=== PATIENT | male | born 2000 | race African-American/Black ===

== ENCOUNTER 2020-04-19 02:02 | Emergency (ER) | payer MEDICAID, SELFPAY ==
[2020-04-19 02:08] VITALS: BP 132/66; PULSE 46; RESP 16; TEMP 36.7; O2SAT 100; BMI 25.0
[2020-04-19] MEDS: Acetaminophen 325 MG TABLET 975 MG PO (03:04)
[2020-04-19] MEDS: Lidocaine 4 % Patch ADH..PATCH 1 PATCH TRANSDERMA (03:04)
[2020-04-19] MEDS: Ketorolac Tromethamine 15 MG/ML VIAL IM (03:04)
--- NOTE | 2020-04-19 03:10 | PC.NURSE ---
pt medicated per emar for 7/10 lower back pain that has been going on for approx 2 months. pt urine sample sent. pending this to be dKylec, pt in nad
--- NOTE | 2020-04-19 03:14 | ED_ITS ---
HPI - Back Pain/Injury General Chief Complaint: Back Pain/Injury Stated Complaint: Back pain Time Seen by Provider: 04/19/20 02:28 Source: patient Mode of arrival: ambulatory Limitations: no limitations History of Present Illness HPI Narrative: This is a 20-year-old male who presents with 1-2 days of acute worsening of his chronic back pain that he describes being located on the right paraspinal lower back without radiation into the gluteal muscle or down into the lower extremity. In addition, patient denies any fevers, chills, nausea, vomiting, diarrhea, urinary pain/ burning /frequency. Related Data Allergies Allergy/AdvReac Type Severity Reaction Status Date / Time No Known Allergies Allergy Verified 04/19/20 02:07 Review of Systems Review of Systems: Pertinent positives and negatives as stated in HPI 10 point review of systems otherwise negative. [facility] Past Medical History Source: nursing notes reviewed Medical History No known health problems Social History Social History Advance Directives: No Advance Directives Information Provided: No Physical Exam Vital Signs: Vital Signs: Vital Signs Temp Pulse Resp BP Pulse Ox 04/19/20 02:08 98.1 F 46 L 16 132/66 100 Body Mass Index 25.0 VITAL SIGNS: Reviewed. GENERAL: Well developed, well nourished, in no acute distress. HEAD: Normocephalic/atraumatic, EYES: PERRLA, EOMI intact without pain, no nystagmus/pallor/icterus noted EARS: Ext canals without abnormality, TMs non-bulging and non-erythematous NOSE: Nares patent bilateral OROPHARYNX: no oral lesions noted, posterior pharynx clear and non-erythematous without noted tonsillar enlargement/erythema/exudates NECK: Supple, no adenopathy LUNGS: Normal breath sounds. No adventitious sounds or accessory muscle use. SpO2<100> CARDIOVASCULAR: Regular rate and rhythm without noted murmurs, no JVD or lower extremity edema. ABDOMEN: Soft, non-tender, non-distended with bowel sounds. No rigidity. No guarding. No palpable masses or hernias noted MUSCULOSKELETAL: No tenderness, deformities, or effusions noted on gross inspection. BACK: Noted spasm to the right paraspinal approximately L4-L5 and no noted midline vertebral tenderness. Otherwise, full range of motion noted and straight leg negative. EXTREMITIES: No cyanosis, clubbing or edema. SKIN: Inspection of the skin reveals no rashes, ulcerations, jaundice, pallor, or petechiae. NEUROLOGIC: Alert and oriented x 4. Strength and sensation to light touch were grossly intact x 4. Course Course Course Narrative: This is a 20-year-old male with history and clinical presentation most consistent with likely acute on chronic exacerbation of lower back pain with associated muscle spasm. Doubt renal colic, UTI etiologies. Patient was provided with combination analgesics and a urinalysis was checked. On re-evaluation patient has had complete resolution of his back pain and urinalysis is negative for UTI. Nursing staff informed me that patient left without his discharge paperwork. MDM - Back Pain/Injury Lab Data Labs: Lab Results 04/19/20 Range/Units 03:03 Urine Color YELLOW Urine Appearance CLEAR Urine pH 7.0 (5.0-8.0) Ur Specific [place] 1.025 (1.005-1.025) Urine Protein NEG (NEG-TRACE) MG/DL Urine Glucose (UA) NEG (NEG) MG/DL Urine Ketones 5 (NEG) MG/DL Urine Blood NEG (NEG) Urine Nitrite NEG (NEG) Ur Leukocyte Esterase NEG (NEG) Discharge Plan Discharge Clinical Impression: Back pain Qualifiers: Back pain location: low back pain Chronicity: acute Back pain laterality: right Sciatica presence: without sciatica Qualified Code(s): M54.5 - Low back pain Patient Disposition: Home, Self-Care Instructions: Acute Low Back Pain (ED) Additional Instructions: 1. Tylenol 1000 mg, orally, every 6 hours as needed for pain control. Do not exceed 4000 mg within 24 hours. 2. ibuprofen 400 mg, orally with milk or food, every 6 hours as needed for pain control. 3. lidocaine patch, this is available in every drug store, apply to area of maximal tenderness as directed on the outside packaging. The patient and/or family acknowledge understanding of results (as applicable), diagnosis, treatment plan, need for follow up, and symptoms that should prompt a return to the emergency room. Referrals: Physician,Unknown [Primary Care Provider] - 2 days ( back pain)
[2020-04-19 03:17] LABS: Glucose Urine UA NEG (NEG); Leukocyte Esterase Urine NEG (NEG); Nitrite Urine NEG (NEG); Specific Gravity - Urine 1.025 (1.005-1.025); Urine Blood NEG (NEG); Urine Ketones 5 MG/DL (NEG); Urine Protein NEG (NEG-TRACE)
[2020-04-19 03:18] LABS: Appearance Urine CLEAR; Color Urine YELLOW
--- NOTE | 2020-04-19 04:16 | PC.NURSE ---
pt did not want to wait for d.c instructions. urine negative.
== END 2020-04-19 04:30 | disposition home or self-care (01) ==
PROVIDERS: Emergency Provider Student in an Organized Health Care Education/Training Program
DX: M54.42 Lumbago with sciatica, left side (principal); M54.41 Lumbago with sciatica, right side
CPT/HCPCS: 81003; 96372; 99283; 99284; J1885

== ENCOUNTER 2020-08-09 12:23 | Outpatient (REF) | payer MEDICAID, SELFPAY ==
--- NOTE | ~2020-08-09 | XR_ITS ---
EXAMINATION: XR LUMBOSACRAL SPINE CLINICAL INFORMATION: Low back pain. COMPARISON: None TECHNIQUE: Three views of the lumbosacral spine. FINDINGS: Mild retrolisthesis of L5 on S1. Vertebral body heights are maintained. No evidence of acute fracture. Disc spaces are maintained. SI joints are intact. No abnormal soft tissue calcification. XR/XR lumbar spine 2-3V IMPRESSION: Mild retrolisthesis of L5 on S1. No acute osseous abnormality.
== END 2020-08-09 12:24 | disposition home or self-care (01) ==
LOC: HO.XRAY 12:23
PROVIDERS: PCP Nurse Practitioner Primary Care; Visit Provider Nurse Practitioner Primary Care
DX: M54.5 Low back pain (principal)
CPT/HCPCS: 72100

== ENCOUNTER 2020-08-26 09:00 | Outpatient (RCR) | payer MEDICAID, SELFPAY | END 2020-09-07 11:12 | disposition home or self-care (01) | LOC: HO.PT 09:00 | PROVIDERS: PCP Nurse Practitioner Primary Care; Visit Provider Nurse Practitioner Primary Care | DX: M54.41 Lumbago with sciatica, right side (principal); M54.42 Lumbago with sciatica, left side | CPT/HCPCS: 97110; 97161; 97530 ==

== ENCOUNTER 2020-11-02 01:04 | Emergency (ER) | payer MEDICAID, SELFPAY ==
--- NOTE | ~2020-11-02 | XR_ITS ---
EXAMINATION: XR FOOT, RIGHT CLINICAL INFORMATION: Toe/foot injury COMPARISON: 08/22/2016 TECHNIQUE: AP, lateral, and oblique views of the right foot. FINDINGS: Osseous alignment is anatomic. No acute fracture is seen. No significant focal soft tissue abnormality identified. XR/XR foot RT 2V IMPRESSION: No acute findings identified.
[2020-11-02 01:26] VITALS: BP 137/58; PULSE 61; RESP 18; TEMP 37; O2SAT 100; BMI 23.1
--- NOTE | 2020-11-02 02:25 | ED_ITS ---
HPI - General Adult General Chief complaint: General Medical Stated complaint: foot pain Time Seen by Provider: 11/02/20 02:18 Source: patient Mode of arrival: ambulatory Limitations: no limitations History of Present Illness HPI narrative: 20-year-old male with no significant past medical history presents with right lateral foot pain that started on Saturday after a basketball game. Patient stated that he landed wrong on the pain has progressively gotten worse. Every time he steps he feels a sharp shooting pain going through his foot. He does not report any bruising or swelling, denies loss of sensation. Or any other injuries. Onset (ago): day(s) Location: right and lower extremity Radiation: non-radiation Severity: moderate Severity scale (1-10): 6 Quality: stabbing, aching and sharp Pain Consistency: intermittent Relieving factors: immobilization and rest Exacerbating factors: movement Associated symptoms: denies other symptoms Treatments prior to arrival: none Related Data Allergies Allergy/AdvReac Type Severity Reaction Status Date / Time No Known Allergies Allergy Verified 11/02/20 01:26 Review of Systems Review of Systems: Constitutional: No Fever, No Chills ENT/Mouth: No Ear Pain, No Hoarseness, No sore throat Eyes: No Eye Pain, No Swelling, No Redness, No Foreign Body Cardiovascular: No Chest Pain, No SOB Respiratory: No Cough, No Dyspnea Gastrointestinal: No Nausea, No Vomiting, No Diarrhea, No abdominal Pain Genitourinary: No Dysuria, No Hematuria Musculoskeletal: positive right foot pain, No Myalgias, No Joint Swelling Skin: No Skin lacerations, No rash Neuro: No Weakness, No Numbness, No Paresthesias, No Loss of Consciousness, No Dizziness, No Headache Psych: No Anxiety/Panic, No Depression Heme/Lymph: no easy bruising, no Lymphadenopathy Endocrine: No Polyuria, No Polydipsia Yes all other systems are reviewed and are negative [facility] Past Medical History Attestation statement: The following information was validated with the patient. Source: old records reviewed Medical History No known health problems Social History Social History Advance Directives: No Advance Directives Information Provided: No Physical Exam Vital Signs: Vital Signs: Last Vital Signs Temp 98.6 F 11/02/20 01:26 Pulse 61 11/02/20 01:26 Resp 18 11/02/20 01:26 BP 137/58 L 11/02/20 01:26 Pulse Ox 100 11/02/20 01:26 Body Mass Index 23.1 Appearance: Alert. Oriented X3. No acute distress. Eyes: Pupils equal, round and reactive to light. ENT: Pharynx normal. Neck: Normal inspection. Neck supple. CVS: Normal heart rate and rhythm. Pulses normal. Respiratory: No respiratory distress. Breath sounds normal. Abdomen: Soft and nontender. Skin: Skin warm and dry. Normal skin color. Normal skin turgor. Extremities: Full range of motion to bilateral lower extremities, tenderness noted to the hallux on the right side, no bruising or swelling noted. Neuro: No motor deficit. No sensory deficit. Course Course Course Narrative: 20-year-old male presents with right foot pain. States that he landed wrong while playing basketball on Saturday. Plan of care is for x- rays. X-rays are negative for acute findings requiring fracture. Plan of care to discharge home. Patient verbalized understanding of and agrees to plan of care discharge home. Medical Decision Making Differential Diagnosis Differential Diagnosis: Fracture, sprain Medical Records Medical records reviewed: Yes I reviewed the patient's medical records. Imaging Data Right foot x-ray: Attestation: I personally reviewed and interpreted this imaging study as follows: Radiologist's impression: EXAMINATION: XR FOOT, RIGHT CLINICAL INFORMATION: Toe/foot injury COMPARISON: 08/22/2016 TECHNIQUE: AP, lateral, and oblique views of the right foot. FINDINGS: Osseous alignment is anatomic. No acute fracture is seen. No significant focal soft tissue abnormality identified. XR/XR foot RT 2V IMPRESSION: No acute findings identified. Discharge Plan Discharge Clinical Impression: Acute foot pain Qualifiers: Laterality: right Qualified Code(s): M79.671 - Pain in right foot Patient Disposition: Home, Self-Care Instructions: Metatarsalgia (DC), R.I.C.E. Treatment (ED) Additional Instructions: You were evaluated for right foot pain after an injury sustained from a basketball game. Your x-rays are negative for acute findings. You do not have any fractures or indication of sprain. Please take Motrin and Tylenol as needed for pain management. Please follow rest, ice, compression and elevation treatment to help decrease pain. Thank you for choosing this emergency department for evaluation. Please follow-up with primary care physician as needed. Return to the emergency department for any new, concerning, or worsening symptoms.
[2020-11-02] MEDS: Ibuprofen 600 MG TABLET PO (03:31)
== END 2020-11-02 03:32 | disposition home or self-care (01) ==
PROVIDERS: Emergency Provider Emergency Medicine
DX: M79.671 Pain in right foot (principal)
CPT/HCPCS: 73620; 99283

== ENCOUNTER 2020-11-19 01:29 | Emergency (ER) | payer MEDICAID, SELFPAY ==
[2020-11-19 03:56] VITALS: BP 125/74; PULSE 53; RESP 16; TEMP 36.4; O2SAT 99; BMI 23.7
--- NOTE | 2020-11-19 03:57 | ED.GENADULT ---
HPI - General Adult General Chief complaint: General Medical Stated complaint: sore throat/headache Time Seen by Provider: 11/19/20 03:55 Source: patient Mode of arrival: ambulatory History of Present Illness HPI narrative: 20-year-old male presents with sore throat, fatigue, chills, but denies fever, nausea, vomiting, body aches, recent travel, exposure to COVID-19. Related Data Allergies Allergy/AdvReac Type Severity Reaction Status Date / Time No Known Allergies Allergy Verified 11/19/20 03:56 Review of Systems Review of Systems: Pertinent positives and negatives as stated in HPI 10 point review of systems is otherwise negative. PMFSH Past Medical History Source: nursing notes reviewed Medical History No known health problems Social History Social History Advance Directives: No Advance Directives Information Provided: No Physical Exam Vital Signs: Vital Signs: Last Vital Signs Temp 97.6 F 11/19/20 03:56 Pulse 53 11/19/20 03:56 Resp 16 11/19/20 03:56 BP 125/74 11/19/20 03:56 Pulse Ox 99 11/19/20 03:56 Body Mass Index 23.7 VITAL SIGNS: Reviewed. GENERAL: Well developed, well nourished, in no acute distress. HEAD: Normocephalic/atraumatic, EYES: PERRLA, EOMI EARS: Ext canals without abnormality, TMs non-bulging and non-erythematous NOSE: Nares patent bilateral OROPHARYNX: no oral lesions noted, posterior pharynx erythematous with mildly enlarged tonsils but no exudates NECK: Supple, no adenopathy LUNGS: Normal breath sounds. No adventitious sounds or accessory muscle use. SpO2<99> CARDIOVASCULAR: Regular rate and rhythm without noted murmurs ABDOMEN: Soft, non-tender, non-distended with bowel sounds. NEUROLOGIC: Alert and oriented x 4. Strength and sensation to light touch were grossly intact x 4. Course Course Course Narrative: 20-year-old male with history and clinical presentation suggestive of viral syndrome and review of all investigations negative for any acute findings to suggest strep, COVID, mono. All results were discussed with him at bedside and he was discharged in stable condition. Medical Decision Making Lab Data Labs: Lab Results 11/19/20 11/19/20 11/19/20 Range/Units 04:13 04:13 04:13 COVID-19 ([place]) Negative (Negative) COVID-19 Clin Com See Note Monoscreen Negative (Negative) S. pyogenes GrpA ALBARO Negative (Negative) Discharge Plan Discharge Clinical Impression: Pharyngitis Patient Disposition: Home, Self-Care Instructions: Pharyngitis (ED) Additional Instructions: 1. Increase fluid hydration especially with water. Recommend using [id number] Tylenol/ibuprofen as needed for sore throat. 2. Recommend using saline gargles (this is a combination of warm tap water combine with table salt) and you gargle for 5 minutes at least twice a day. 3. Follow-up with your primary care provider in the next 2-3 days for re-evaluation. Return to the ER for any acute worsening of your symptoms. Referrals: [facility] [Primary Care Provider] - 2 days
[2020-11-19 04:33] LABS: Strep A Nucleic Acid Negative (Negative)
[2020-11-19 04:36] LABS: COVID-19 Test Negative (Negative); IDNOW Serial# 9DD0AD1C
[2020-11-19 04:47] LABS: Monotest Negative (Negative)
[2020-11-19] MEDS: Ibuprofen 400 MG TABLET PO (04:58)
[2020-11-19] MEDS: Acetaminophen 325 MG TABLET 975 MG PO (04:58)
== END 2020-11-19 05:57 | disposition home or self-care (01) ==
PROVIDERS: Emergency Provider Student in an Organized Health Care Education/Training Program
DX: J02.9 Acute pharyngitis, unspecified (principal); R51.9 Headache, unspecified; Z20.822 Contact with and (suspected) exposure to COVID-19
CPT/HCPCS: 36415; 86308; 87635; 87651; 99283

== ENCOUNTER 2020-11-29 07:48 | Emergency (ER) | payer MEDICAID, SELFPAY ==
--- NOTE | ~2020-11-29 | XR_ITS ---
EXAMINATION: XR WRIST, RIGHT CLINICAL INFORMATION: . COMPARISON: None TECHNIQUE: PA, lateral, and oblique views of the right wrist. FINDINGS: The bones and soft tissues are normal. No fracture. Alignment is anatomic with normal joint spaces. No erosions or abnormal soft tissue calcifications. XR/XR wrist RT min 3V IMPRESSION: Unremarkable right wrist.
[2020-11-29 07:50] VITALS: BP 144/73; PULSE 43; RESP 12; TEMP 36.6; O2SAT 100; BMI 23.1
--- NOTE | 2020-11-29 08:08 | ED_ITS ---
HPI - Extremity Problem General Chief complaint: Extremity Injury, Upper Stated complaint: Wrist pain Time Seen by Provider: 11/29/20 08:08 Source: patient Mode of arrival: ambulatory Limitations: no limitations History of Present Illness HPI Narrative: wrist pain. Landed on outstretched arm while playing basketball. the injury happened 2 nights ago. no other injuries. MD Complaint: extremity pain and extremity swelling Onset (ago): day(s) (2) Pain Consistency: constant Location: right and upper extremity Quality: aching Radiation: distal Relieving factors: nothing Exacerbating factors: range of motion Related Data Previous Rx's Medication Instructions Recorded naproxen [Naprosyn] 500 mg PO BID #20 tab 11/29/20 Allergies Allergy/AdvReac Type Severity Reaction Status Date / Time No Known Allergies Allergy Verified 11/19/20 03:56 Review of Systems Constitutional: Constitutional: Reports no additional constitutional complaints Eyes: Eyes: Reports no additional eye complaints ENT: Denies dizziness Cardiovascular: Cardiovascular: Reports no additional cardiovascular complaints Respiratory: Respiratory: Reports as per HPI Gastrointestinal: Gastrointestinal: Reports no additional gastrointestinal complaints Musculoskeletal: Musculoskeletal: Reports no additional musculoskeletal complaints Integumentary/Breasts: Skin/Breast: Denies rash Neurologic: Reports system reviewed and no additional complaints, except as documented, Denies dizziness and Denies Sensory deficit (Neuro) Psychiatric: Psychiatric: Denies anxiety PMF Past Medical History Medical History No known health problems Social History Social History Advance Directives: No Advance Directives Information Provided: No Physical Exam Vital Signs: Vital Signs: Last Vital Signs Temp 98 F 11/29/20 07:50 Pulse 43 L 11/29/20 07:50 Resp 12 11/29/20 07:50 BP 144/73 H 11/29/20 07:50 Pulse Ox 100 11/29/20 07:50 Body Mass Index 23.1 Const: General: healthy appearing Nutritional Appearance: average body habitus Orientation/consciousness: oriented to person and patient oriented x3 Limitations: no limitations HENMT: Head: Yes normal to inspection Ears: external ears normal General nose exam: Normal external nose present Mouth: Normal oral and palatal mucosa present and oropharynx normal Throat: Yes posterior oropharynx normal Eyes: General: appearance normal, both eyes and all related structures Neck: Other: supple Neck: Yes normal visual inspection Chest: Chest palpation & inspection: normal inspection of the chest Resp: Auscultation: clear to auscultation bilaterally Cardio: Jugular venous distension: no JVD Rate: regular rate Rhythm: regular rhythm Heart sounds: S1 normal heart sound present and S2 normal heart sound present GI: Inspection: Yes normal to inspection Palpation (GI): Soft to palpation, nontender and No hepatosplenomegaly present Auscultation: normal bowel sounds : General: Yes no CVA tenderness Back/Spine/Pelvis: Back: no CVA tenderness Skin: General skin exam: no rashes or lesions noted Neuro: General: oriented to person and patient oriented x3 Cranial nerves: Yes CN's II-XII intact bilaterally Motor exam (neuro): 5/5 motor strength present throughout Sensory Exam: No Sensory deficit (Neuro) Extrem: Other: right wrist with swelling and tenderness over carpal bones, no tenderness to snuff box area Psych: Appearance: grossly normal Course Course Course Narrative: no fracture, patient with wrist sprain. will dc on NSAIDs Discharge Plan Discharge Clinical Impression: Sprain and strain of wrist Patient Disposition: Home, Self-Care Instructions: Wrist Sprain (ED) Prescriptions: New naproxen [Naprosyn] 500 mg tablet 500 mg PO BID Qty: 20 RF: 0 Referrals: [facility] [Primary Care Provider] - 1 week
[2020-11-29] MEDS: Ibuprofen 800 MG TABLET PO (08:45)
== END 2020-11-29 09:10 | disposition home or self-care (01) ==
PROVIDERS: Emergency Provider Emergency Medicine
DX: S63.501A Unspecified sprain of right wrist, initial encounter (principal); S66.911A Strain of unspecified muscle, fascia and tendon at wrist and hand level, right hand, initial encounter; W01.0XXA Fall on same level from slipping, tripping and stumbling without subsequent striking against object, initial encounter; Y93.67 Activity, basketball; Y92.310 Basketball court as the place of occurrence of the external cause; Y99.9 Unspecified external cause status
CPT/HCPCS: 73110; 99283

== ENCOUNTER 2022-04-01 09:20 | Emergency (ER) | payer MEDICAID, SELFPAY ==
--- NOTE | ~2022-04-01 | XR_ITS ---
EXAMINATION: XR ANKLE, LEFT CLINICAL INFORMATION: Injury pain COMPARISON: X-ray left foot JulyJuly 2014 TECHNIQUE: AP, lateral, and mortise views of the left ankle. FINDINGS: There is soft tissue prominence anteriorly and laterally likely reflecting edema and soft tissue swelling. No definite joint effusion. No fracture. Bone and joints unremarkable. XR/XR ankle LT 2V IMPRESSION: No fracture. Probable soft tissue swelling anteriorly and laterally about the ankle.
[2022-04-01 09:24] VITALS: BP 134/64; PULSE 53; TEMP 36.9; O2SAT 98
--- NOTE | 2022-04-01 09:37 | ED_ITS ---
HPI - Extremity Injury (Lower) General Chief Complaint: General Medical Stated Complaint: L ankle pain, possible fracture Time Seen by Provider: 04/01/22 09:28 Source: patient Mode of arrival: ambulatory Limitations: no limitations History of Present Illness HPI Narrative: 22-year-old male here with left ankle pain after inversion injury which occurred yesterday. Patient now reports pain with weight-bearing. No numbness, tingling or weakness Related Data Previous Rx's Medication Instructions Recorded naproxen 500 mg tablet (Naprosyn) 500 mg PO BID #20 tabs 11/29/20 Allergies Allergy/AdvReac Type Severity Reaction Status Date / Time No Known Allergies Allergy Verified 11/19/20 03:56 Review of Systems Review of Systems: Yes all other systems are reviewed and are negative Constitutional: Constitutional: Reports no additional constitutional complaints, Denies body ache(s), Denies chills, Denies fever(s), Denies headache(s) and Denies weakness Eyes: Eyes: Reports no additional eye complaints and Denies change in vision ENT: Reports system reviewed and no additional complaints, except as documented, Denies dizziness, Denies headache(s), Denies nasal congestion, Denies nasal discharge and Denies neck pain Cardiovascular: Cardiovascular: Reports no additional cardiovascular complaints, Denies chest pain, Denies leg edema and Denies dyspnea Respiratory: Respiratory: Reports no additional respiratory complaints, Denies cough and Denies dyspnea Gastrointestinal: Gastrointestinal: Reports no additional gastrointestinal com plaints, Denies abdominal pain, Denies diarrhea, Denies nausea and Denies vomiting Genitourinary: Genitourinary: Denies urinary incontinence Musculoskeletal: Musculoskeletal: Reports no additional musculoskeletal complaints, Denies back pain, Reports arthralgias, Reports joint swelling, Antwon es neck pain, Denies numbness and Denies tingling Integumentary/Breasts: Skin/Breast: Reports system reviewed and no additional complaints, except as docu and Denies rash Neurologic: Reports system reviewed and no additional complaints, except as documented, Denies Abnormal speech present, Denies dizziness, Denies headache(s), Denies numbness, Denies tingling and Denies weakness PMFSH Past Medical History Attestation statement: The following information was validated with the patient. Source: old records reviewed and nursing notes reviewed Medical History No known health problems Social History Social History Advance Directives: No Advance Directives Information Provided: No Physical Exam Vital Signs: Vital Signs: Last Vital Signs Temp 98.5 F 04/01/22 09:24 Pulse 53 04/01/22 09:24 BP 134/64 04/01/22 09:24 Pulse Ox 98 04/01/22 09:24 O2 Del Method 04/01/22 09:24 BMI result Body Mass Index 25.0 Const: General: cooperative, healthy appearing, comfortable and no acute distress Orientation/consciousness: patient oriented x3 Limitations: no limitations HEENT: Head: Yes normal to inspection Ears: hearing grossly normal bilaterally General nose exam: Normal external nose present Face and sinus: Yes normal facial exam Mouth: Normal oral and palatal mucosa present Throat: Yes posterior oropharynx normal Eyes: General: appearance normal, both eyes and all related structures Pupils: Equal, round and reactive pupils present Neck: Neck: Yes normal visual inspection Chest: Chest palpation & inspection: normal inspection of the chest Resp: Effort & Inspection: normal respiratory effort Auscultation: clear to auscultation bilaterally Cardio: Rate: regular rate Rhythm: regular rhythm Peripheral pulses: Peripheral pulses 2+ throughout GI: Inspection: Yes normal to inspection Palpation (GI): Soft to palpation and nontender Auscultation: normal bowel sounds Back/Spine/Pelvis: Thoracic/Lumbar Spine: thoracic and lumbar spine normal to inspection Skin: General skin exam: no rashes or lesions noted Neuro: General: patient oriented x3, no focal motor deficits and normal sensation to monofilament Cranial nerves: Yes Equal, round and reactive pupils present Cognition (Neuro): normal cognition Speech: No Abnormal speech present Gait exam (Neuro): Normal gait present Motor exam (neuro): 5/5 motor strength present throughout Extrem: Other: +swelling/ecchymosis to the left lateral ankle. 2+DP/PT pulses. Sensation normal. FROM of foot and ankle General: Yes normal to inspection and Yes no calf tenderness Course Course Course Narrative: X-ray shows no acute bony abnormality. Likely sprain. Patient placed in air cast and crutches for home. Reviewed rice. Reviewed worrisome signs and symptoms when to return to the emergency room. Comfortable plan for discharge home. MDM - Extremity Injury (Lower) MDM Narrative Medical decision making narrative: 22-year-old male here with left ankle pain after inversion injury. Will check x-rays, provide analgesia Differential Diagnosis Differential diagnosis: Likely ankle sprain and strain and ankle fracture Medical Records Attestation: I reviewed the patient's medical records. Lab Data Attestation: I reviewed the patient's lab results. Imaging Data ankle x-ray: Attestation: I personally reviewed and interpreted this imaging study as follows: Radiologist's impression: [address] [address] XRay Report Signed Patient: Usama Saenz MR#: [id number] : 2000 Acct:[id number] Age/Sex: 22 / M ADM Date: 04/01/22 Loc: HO.ED Attending Dr: Ordering Physician: Martha Lott NP Date of Service: 04/01/22 Procedure(s): XR ankle LT 2V Accession Number(s): [id number] cc: Martha Lott NP~ EXAMINATION: XR ANKLE, LEFT CLINICAL INFORMATION: Injury pain? COMPARISON: X-ray left foot JulyJuly 2014 TECHNIQUE: AP, lateral, and mortise views of the left ankle. FINDINGS: There is soft tissue prominence anteriorly and laterally likely reflecting edema and soft tissue swelling. No definite joint effusion. No fracture. Bone and joints unremarkable.? XR/XR ankle LT 2V IMPRESSION: No fracture. ? Probable soft tissue swelling anteriorly and laterally about the ankle. Procedures Procedure Narrative Procedure Narrative: aircast, crutches Discharge Plan Discharge Clinical Impression: Ankle sprain Patient Disposition: Home, Self-Care Instructions: Ankle Sprain (ED) Additional Instructions: Rest, ice, elevation Use the aircast and crutches for ambulation with non weight bearing Take motrin or tylenol for pain as needed Prescriptions: No Action naproxen [Naprosyn] 500 mg tablet 500 mg PO BID Qty: 20 0RF Referrals: [facility] [Physician[facility] - Stand Alone Forms: Work/School Release Interventions: ED Discharge Assessment Last Done: 04/01/22 11:12 Discharge Date/Time: 04/01/22 11:13
[2022-04-01 09:51] VITALS: BMI 25.0
[2022-04-01] MEDS: Ibuprofen 600 MG TABLET PO (09:55)
== END 2022-04-01 11:13 | disposition home or self-care (01) ==
PROVIDERS: Emergency Provider Emergency Medicine; PCP Nurse Practitioner Primary Care
DX: M25.572 Pain in left ankle and joints of left foot (principal)
CPT/HCPCS: 73600; 99283

== ENCOUNTER 2022-04-08 10:13 | Emergency (ER) | payer MEDICAID, SELFPAY ==
--- NOTE | ~2022-04-08 | XR_ITS ---
. EXAMINATION: XR wrist RT w scaphoid CLINICAL INFORMATION: s/p fall x 1 year ago c persistent pain COMPARISON: None. TECHNIQUE: AP, lateral, oblique, and scaphoid views of the right wrist FINDINGS: No fracture. Normal alignment. Normal mineralization. No radiopaque foreign body. No soft tissue abnormality seen. XR/XR wrist RT w scaphoid IMPRESSION: No acute osseous abnormality.
--- NOTE | ~2022-04-08 | XR_ITS ---
EXAMINATION: CR X-RAY FOOT AND ANKLE LEFT CLINICAL INFORMATION: Left foot and ankle pain and swelling. COMPARISON: None TECHNIQUE: 3 views each of the left foot and ankle were obtained. FINDINGS: Mild soft tissue swelling is seen laterally in the ankle without acute underlying osseous abnormality. The tarsal bones are normally aligned. The metatarsals and phalanges are intact. XR/XR ankle LT min 3V IMPRESSION: Mild soft tissue swelling laterally in the left ankle without acute underlying osseous abnormality.
--- NOTE | ~2022-04-08 | XR_ITS ---
EXAMINATION: CR X-RAY FOOT AND ANKLE LEFT CLINICAL INFORMATION: Left foot and ankle pain and swelling. COMPARISON: None TECHNIQUE: 3 views each of the left foot and ankle were obtained. FINDINGS: Mild soft tissue swelling is seen laterally in the ankle without acute underlying osseous abnormality. The tarsal bones are normally aligned. The metatarsals and phalanges are intact. XR/XR foot LT min 3V IMPRESSION: Mild soft tissue swelling laterally in the left ankle without acute underlying osseous abnormality.
[2022-04-08 10:34] VITALS: BP 146/55; PULSE 50; RESP 17; TEMP 36.6; O2SAT 98; BMI 23.7
--- NOTE | 2022-04-08 12:58 | ED.LOWEXIN ---
HPI - Extremity Injury (Lower) General Chief Complaint: Extremity Injury, Lower Stated Complaint: L ankle inj Time Seen by Provider: 04/08/22 11:54 Source: patient and family Mode of arrival: ambulatory Limitations: no limitations History of Present Illness HPI Narrative: 22-year-old male presenting to the ER with complaints of persistent left ankle/foot pain/swelling after he had an inversion injury on 03/31/2022. He reports that the pain is worse with weight-bearing. He was seen here on 04/01/2022 and had a negative left ankle x-ray. Although he reports he was never given the Aircast or the crutches. He reports his pain persists and he would like re-evaluation and imaging. He also reports right wrist pain for approximately 1 year ago after he had a fall at that time. He reports he is having pain with his right wrist almost daily especially with certain movements. Otherwise he denies any fevers, paresthesias, weakness, rashes, new falls or trauma or any other symptoms complaints or concerns at this time. MD complaint: ankle injury and other Onset (ago): day(s) (8) Injury: Left: ankle and foot Type of Injury: inversion Severity: mild Relieving factors: nothing Exacerbating factors: weight bearing, movement and palpation Context: other (See above) Associated symptoms: swelling and able to partially bear weight Other symptoms: none Related Data Previous Rx's Medication Instructions Recorded naproxen 500 mg tablet (Naprosyn) 500 mg PO BID #20 tabs 11/29/20 Allergies Allergy/AdvReac Type Severity Reaction Status Date / Time No Known Allergies Allergy Verified 11/19/20 03:56 Review of Systems Review of Systems: Constitutional : No Weight loss, No Fever, No Chills, No Night Sweats, No Fatigue, No Malaise ENT/Mouth : No Hearing loss, No Ear Pain, No Nasal Congestion, No Sinus Pain, No Hoarseness, No sore throat, No Rhinorrhea, No Swallowing Difficulty Eyes: No Eye Pain, No Swelling, No Redness, No Foreign Body, No Discharge, No Vision Changes Cardiovascular : No Chest Pain, No SOB, No Dyspnea on Exertion, No Orthopnea, No Edema, No Palpitations Respiratory : No Cough, No Sputum, No Wheezing, No Smoke Exposure, No Dyspnea Gastrointestinal : No Nausea, No Vomiting, No Diarrhea, No Constipation, No abdominal Pain, No Hematochezia, No Melena Genitourinary : no irregular bleeding, No Dysuria, No Urinary Frequency, No Hematuria, No Urinary Incontinence, No Urgency, No Flank Pain, No Urinary Flow Changes, No Hesitancy Musculoskeletal : + left ankle/foot pain/swelling and Right wrist joint pain, No Myalgias Skin : No Skin Lesions, No rash Neuro : No Weakness, No Numbness, No Paresthesias, No Loss of Consciousness, No Dizziness, No Headache Psych : No Anxiety/Panic, No Depression, No SI/HI/AH/VH, No Social Issues, Heme/Lymph: No Bruising, No Bleeding,No Lymphadenopathy Endocrine : No Polyuria, No Polydipsia, No Temperature Intolerance Yes all other systems are reviewed and are negative [facility] Past Medical History Attestation statement: The following information was validated with the patient. Source: old records reviewed and nursing notes reviewed Medical History No known health problems Social History Social History Advance Directives: No Advance Directives Information Provided: Yes Physical Exam Vital Signs: Vital Signs: Last Vital Signs Temp 98 F 04/08/22 10:34 Pulse 50 04/08/22 10:34 Resp 17 04/08/22 10:34 BP 146/55 H 04/08/22 10:34 Pulse Ox 98 04/08/22 10:34 O2 Del Method 04/08/22 10:34 BMI result Body Mass Index 23.7 vital signs have been reviewed as normal and appeared to be correct. Blood pressure 146/55 Heart rate normal. Respiration rate normal. Temperature normal. Oxygen saturation normal. Appearance: Alert. Oriented X3. No acute distress. Head: Normal external exam. Normocephalic. Atraumatic. Eyes: PERRLA. EOMI. Conjunctiva and sclera normal. Eyelids normal. ENT: Pharynx normal. Uvula midline. Moist mucous membranes. Neck: Normal inspection. Neck supple. FROM. CVS: Normal heart rate and rhythm. Respiratory: No respiratory distress. Painless inspiration. Skin: Skin warm and dry. Normal skin color. Normal skin turgor. No rashes/lesions/lacerations noted. Extremities: Patient moderate tenderness palpation and soft tissue swelling to left ankle at the lateral/medial and proximal aspect of the foot. He has full range of motion of the left ankle/foot joint. No obvious ligamentous or tendon injury noted. Achilles tendon is intact. Negative Vides test. No lower extremity edema noted. Patient also noted to have tenderness palpation to the right wrist. No obvious ligamentous or tendon injury noted to the right wrist. No upper lower extremity edema. Patient has full range of motion of the right wrist and hand and finger joint. Otherwise all other extremities exhibit normal range of motion nontender. Neuro: Oriented X 3. No motor deficit. No sensory deficit. Reflexes normal. Normal steady gait. No focal neuro deficits noted. Vascular: + radial pulses/+ 2 distal pedal pulses/+2 dorsalis pedis b/l. Normal cap refill. No cyanosis noted to upper extremity nails and lower extremity toes nails. Course Course Course Narrative: 12:10pm - 22-year-old male presenting to the ER with complaints of persistent left ankle/foot pain/swelling after he had an inversion injury on 03/31/2022. He reports that the pain is worse with weight-bearing. He was seen here on 04/01/2022 and had a negative left ankle x-ray. Although he reports he was never given the Aircast or the crutches. He reports his pain persists and he would like re-evaluation and imaging. He also reports right wrist pain for approximately 1 year ago after he had a fall at that time. He reports he is having pain with his right wrist almost daily especially with certain movements. Plan: Will repeat the patient's left ankle x-ray, will also x-ray the patient's left foot, x-ray of right wrist and re-evaluate. Reevaluation(s) Reevaluation #1: - left ankle/foot x-ray reveals soft tissue swelling at the lateral malleolus otherwise no other acute processes noted. Right wrist x-ray negative for any acute processes. Will place in an Aircast and crutches and treat symptomatic clean instructed follow-up with PCP and orthopedic as needed in the next few weeks and to return if any new or worsening symptoms. Patient understands agrees with this plan. Time: 13:36 MDM - Extremity Injury (Lower) Medical Records Attestation: I reviewed the patient's medical records. Imaging Data Left ankle/foot x-ray: Attestation: I personally reviewed and interpreted this imaging study as follows: Radiologist's impression: FINDINGS: Mild soft tissue swelling is seen laterally in the ankle without acute underlying osseous abnormality. The tarsal bones are normally aligned. The metatarsals and phalanges are intact.? XR/XR foot LT min 3V IMPRESSION: Mild soft tissue swelling laterally in the left ankle without acute underlying osseous abnormality.? Right wrist x-ray: Attestation: I personally reviewed and interpreted this imaging study as follows: Radiologist's impression: FINDINGS: No fracture. Normal alignment. Normal mineralization.? No radiopaque foreign body. No soft tissue abnormality seen. XR/XR wrist RT w scaphoid IMPRESSION: No acute osseous abnormality. Discharge Plan Discharge Clinical Impression: Ankle sprain and strain, Sprain and strain of right wrist Patient Disposition: Home, Self-Care Instructions: Ankle Sprain (ED) Prescriptions: No Action naproxen [Naprosyn] 500 mg tablet 500 mg PO BID Qty: 20 0RF Referrals: Ria Berry NP [Primary Care Provider] - 2 days (For further evaluation treatment of his right wrist and left ankle/foot pain) [facility] [place] [facility] [Provider Group] (Make a follow-up appointment if symptoms persist over the next few weeks) Stand Alone Forms: Work/School Release Print Language: [place]
== END 2022-04-08 14:32 | disposition home or self-care (01) ==
PROVIDERS: Emergency Provider Emergency Medicine; PCP Nurse Practitioner Primary Care
DX: S93.402A Sprain of unspecified ligament of left ankle, initial encounter (principal); S93.401A Sprain of unspecified ligament of right ankle, initial encounter; S63.501A Unspecified sprain of right wrist, initial encounter; X58.XXXA Exposure to other specified factors, initial encounter; Y93.9 Activity, unspecified; Y92.9 Unspecified place or not applicable; Y99.9 Unspecified external cause status; Z79.899 Other long term (current) drug therapy
CPT/HCPCS: 73110; 73610; 73630; 99284

== ENCOUNTER 2022-07-06 08:00 | Outpatient (RCR) | payer MEDICAID, SELFPAY | END 2022-07-25 10:31 | disposition home or self-care (01) | LOC: HO.PT 08:00 | PROVIDERS: PCP Nurse Practitioner Primary Care; Visit Provider Nurse Practitioner Primary Care | DX: S93.402D Sprain of unspecified ligament of left ankle, subsequent encounter (principal); M25.511 Pain in right shoulder; G89.29 Other chronic pain | CPT/HCPCS: 97110; 97112; 97140; 97162 ==

== ENCOUNTER 2023-03-28 12:52 | Outpatient (AMB) | payer MEDICAID, SELFPAY ==
[2023-03-28 13:04] VITALS: BP 142/74; PULSE 55; TEMP 36.8; O2SAT 97; BMI 26.0
--- NOTE | 2023-03-28 13:04 | MHC.OFFVIS ---
Intake Vital Signs 03/28/23 13:04 Height 6 ft 4 in Weight 213 lb 13.574 oz BMI 26.0 BP 142/74 H Blood Pressure Location Rt brachial Position Sitting Pulse 55 Pulse Source Pulse Oximeter Temp 98.2 F Temp Source Skin Pulse Oximetry (%) 97 Intake Visit Reasons: Polyarthralgia Intake Note: New pt presents today for consult. C/o pain in most joints. Reports foot injruy right a year ago Youth Care Professional Required: No Accompanied by: Self / Same As Patient Allergies No Known Allergies Allergy (Verified 03/28/23 13:07) Medication List - Last Reconciled 03/28/23 by Sarita Leal MD meloxicam 7.5 mg PO DAILY PRN HPI HPI Comments History of Present Illness Details This is a 23-year-old male who presents for evaluation of multiple joint pain. Per patient his been having symptoms for some time but they have been worse over the last year. States that the majority of his pain is both knees and ankles, usually after activities such as playing basketball or lifting weights at the gym. He plays basketball 2 to 3 times a week. States that he had bilateral ankle sprains over the last year. States that he injured his wrist years ago. He also states that if he lifts something that is moderately heavy he would have pain in his right shoulder as if it was out of its socket for 2 days. He has difficulty staying asleep due to diffuse pain. He mentions intermittent ankle and knee swelling. He takes meloxicam as needed for joint pain twice a month. Denies any urethral discharge, burning with urination or history of STDs. Denies any skin rashes. He is unaware of any family history of an autoimmune rheumatic disease. [facility] Medical History Pain in joint, multiple sites Surgical History Hx of hernia repair Family History Mother Diabetes Hypertension Father No problems noted. Social History Household Members: Family Alcohol intake: current Alcohol intake frequency: other Patient Tobacco Use Status: Never used Tobacco Substance Use Type: Marijuana Current occupation: Works for [employer] [place] [facility] [place] Psych Reports abnormal sleep pattern Physical Exam Vital Signs: Last Vital Signs Temp 98.2 F 03/28/23 13:04 Pulse 55 03/28/23 13:04 BP 142/74 H 03/28/23 13:04 Pulse Ox 97 03/28/23 13:04 BMI result Body Mass Index 26.0 Const General: cooperative, healthy appearing and comfortable Nutritional Appearance: average body habitus Orientation/consciousness: patient oriented x3 Limitations: no limitations HEENT Head: Yes normocephalic and Yes atraumatic Mouth: moist mucous membranes Resp Effort & Inspection: normal respiratory effort and able to speak in complete sentences Auscultation: clear to auscultation bilaterally Cardio Rate: regular rate Rhythm: regular rhythm GI Inspection: No distended Palpation (GI): Soft to palpation and nontender Skin General skin exam: no rashes or lesions noted Neuro General: patient oriented x3 Extrem Other: No active synovitis Normal range of motion of both hands, wrists, fingers Negative MCP squeeze test bilaterally Normal range of motion of both elbows without pain Positive empty can test on the right Negative infraspinatus provocative tests bilaterally Negative lift-off test bilaterally Negative straight leg raise test, negative CASH test bilaterally Normal range of motion of both knees without pain No knee swelling or warmth bilaterally No ankle or foot swelling or tenderness bilaterally Negative MTP squeeze test bilaterally Normal nailfold capillaroscopy Results Reviewed Results Reviewed: Labs 11/2022? CBC unremarkable RF/NABIL negative? ESR 2? CRP normal Lyme screen negative Assessment & Plan Assessment & Plan (1) Pain in joint, multiple sites: Code(s): M25.50 - Pain in unspecified joint Plan: This is a 23-year-old male who presents for evaluation of polyarthralgias. Previous serology showed negative NABIL/RF with normal inflammatory markers. Will check an anti CCP antibody. Will check x-rays of involved joints. Plan I spent 46 minutes reviewing patient's chart, evaluating patient, ordering diagnostic workup, counseling patient and documenting in the chart Orders: Orders XR knee RT 3V Today M25.50 - Pain in unspecified joint XR knee LT 3V Today M25.50 - Pain in unspecified joint Cyclic Citrullinated Peptide Today M25.50 - Pain in unspecified joint XR shoulder LT min 2V Today M25.50 - Pain in unspecified joint XR shoulder RT min 2V Today M25.50 - Pain in unspecified joint XR knee standing BI Today M25.50 - Pain in unspecified joint Coding Level of Care Code New Pt Level 4 (90152) Diagnoses Pain in joint, multiple sites M25.50
== END 2023-03-28 13:35 | disposition home or self-care (01) ==
PROVIDERS: PCP Nurse Practitioner Primary Care; Visit Provider Student in an Organized Health Care Education/Training Program
DX: M25.50 Pain in unspecified joint (principal)
CPT/HCPCS: 99204

== ENCOUNTER → 2023-03-28 12:52 | Outpatient (BNVA) | payer MEDICAID, SELFPAY | PROVIDERS: PCP Nurse Practitioner Primary Care; Visit Provider Student in an Organized Health Care Education/Training Program ==

== ENCOUNTER 2023-04-04 12:33 | Outpatient (REF) | payer MEDICAID, SELFPAY ==
--- NOTE | ~2023-04-04 | XR_ITS ---
STUDY: Bilateral shoulders and bilateral knees INDICATION: Joint pain, predominantly right shoulder TECHNIQUE: 4 view each shoulder, 4 view each knee COMPARISON: None FINDINGS: Right shoulder: 3.3 x 2.2 cm predominantly sclerotic focus is identified superolateral aspect of the right humeral head. Sonographic transition slightly irregular but fairly well-defined. No periosteal reaction or pathologic fracture. Couple calcifications identified adjacent to the superolateral aspect of the right humeral head. Visualized ribs and lung are unremarkable. Left shoulder: No fracture, dislocation or erosive bony change. No abnormal calcifications. Visualized lung and ribs are unremarkable. Bilateral knees: Bilateral suprapatellar effusions. No fractures or dislocations. Alignment and articulations maintained. XR/XR knee LT 4V IMPRESSION: Indeterminate 3.3 cm predominantly sclerotic focus right humeral head. MRI recommended. Bilateral knee joint effusions without acute bony pathology.
--- NOTE | ~2023-04-04 | XR_ITS ---
STUDY: Bilateral shoulders and bilateral knees INDICATION: Joint pain, predominantly right shoulder TECHNIQUE: 4 view each shoulder, 4 view each knee COMPARISON: None FINDINGS: Right shoulder: 3.3 x 2.2 cm predominantly sclerotic focus is identified superolateral aspect of the right humeral head. Sonographic transition slightly irregular but fairly well-defined. No periosteal reaction or pathologic fracture. Couple calcifications identified adjacent to the superolateral aspect of the right humeral head. Visualized ribs and lung are unremarkable. Left shoulder: No fracture, dislocation or erosive bony change. No abnormal calcifications. Visualized lung and ribs are unremarkable. Bilateral knees: Bilateral suprapatellar effusions. No fractures or dislocations. Alignment and articulations maintained. XR/XR shoulder LT min 2V IMPRESSION: Indeterminate 3.3 cm predominantly sclerotic focus right humeral head. MRI recommended. Bilateral knee joint effusions without acute bony pathology.
--- NOTE | ~2023-04-04 | XR_ITS ---
STUDY: Bilateral shoulders and bilateral knees INDICATION: Joint pain, predominantly right shoulder TECHNIQUE: 4 view each shoulder, 4 view each knee COMPARISON: None FINDINGS: Right shoulder: 3.3 x 2.2 cm predominantly sclerotic focus is identified superolateral aspect of the right humeral head. Sonographic transition slightly irregular but fairly well-defined. No periosteal reaction or pathologic fracture. Couple calcifications identified adjacent to the superolateral aspect of the right humeral head. Visualized ribs and lung are unremarkable. Left shoulder: No fracture, dislocation or erosive bony change. No abnormal calcifications. Visualized lung and ribs are unremarkable. Bilateral knees: Bilateral suprapatellar effusions. No fractures or dislocations. Alignment and articulations maintained. XR/XR shoulder RT min 2V IMPRESSION: Indeterminate 3.3 cm predominantly sclerotic focus right humeral head. MRI recommended. Bilateral knee joint effusions without acute bony pathology.
--- NOTE | ~2023-04-04 | XR_ITS ---
STUDY: Bilateral shoulders and bilateral knees INDICATION: Joint pain, predominantly right shoulder TECHNIQUE: 4 view each shoulder, 4 view each knee COMPARISON: None FINDINGS: Right shoulder: 3.3 x 2.2 cm predominantly sclerotic focus is identified superolateral aspect of the right humeral head. Sonographic transition slightly irregular but fairly well-defined. No periosteal reaction or pathologic fracture. Couple calcifications identified adjacent to the superolateral aspect of the right humeral head. Visualized ribs and lung are unremarkable. Left shoulder: No fracture, dislocation or erosive bony change. No abnormal calcifications. Visualized lung and ribs are unremarkable. Bilateral knees: Bilateral suprapatellar effusions. No fractures or dislocations. Alignment and articulations maintained. XR/XR knee RT 4V IMPRESSION: Indeterminate 3.3 cm predominantly sclerotic focus right humeral head. MRI recommended. Bilateral knee joint effusions without acute bony pathology.
== END 2023-04-04 12:34 | disposition home or self-care (01) ==
LOC: HO.XRAY 12:33
PROVIDERS: PCP Nurse Practitioner Primary Care; Visit Provider Student in an Organized Health Care Education/Training Program
DX: M25.50 Pain in unspecified joint (principal)
CPT/HCPCS: 36415; 73030; 73564; 86200

== ENCOUNTER 2023-04-04 14:04 | Outpatient (REF) | payer MEDICAID, SELFPAY ==
[2023-04-07 11:04] LABS: Cyclic Citrullinated Peptide <16 UNITS
== END 2023-04-04 14:05 | disposition home or self-care (01) ==
LOC: HO.HHCL 14:04
PROVIDERS: Visit Provider Student in an Organized Health Care Education/Training Program
DX: M25.50 Pain in unspecified joint (principal)
CPT/HCPCS: 36415; 86200

== ENCOUNTER → 2023-04-12 13:26 | Outpatient (BNVA) | payer MEDICAID, SELFPAY | PROVIDERS: PCP Nurse Practitioner Primary Care; Visit Provider Student in an Organized Health Care Education/Training Program ==

== ENCOUNTER 2023-05-03 11:50 | Outpatient (AMB) | payer MEDICAID, SELFPAY ==
--- NOTE | 2023-05-03 11:58 | MHC.OFFVIS ---
Intake Vital Signs 05/03/23 11:59 Height 6 ft 4 in Weight 219 lb 5.759 oz BMI 26.7 BP 128/80 Blood Pressure Location Rt brachial Position Sitting Pulse 52 Pulse Source Pulse Oximeter Temp 97.0 F Temp Source Skin Pulse Oximetry (%) 97 Oxygen Delivery Method Room Air Intake Visit Reasons: arthralgias Intake Note: Pt last seen 02/25/23, presents today for follow up and test results. Reports improvement with prednisone, would like to keep using. 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 States that he felt significant improvement his overall joint pain and stiffness. Especially with the 20 mg of prednisone rather than 5 mg. States that he was able to lift much more weights at the gym without pain. States that it takes much longer for him to feel any joint pain with activity. Initial history: This is a 23-year-old male who presents for evaluation of multiple joint pain. Per patient his been having symptoms for some time but they have been worse over the last year. States that the majority of his pain is both knees and ankles, usually after activities such as playing basketball or lifting weights at the gym. He plays basketball 2 to 3 times a week. States that he had bilateral ankle sprains over the last year. States that he injured his wrist years ago. He also states that if he lifts something that is moderately heavy he would have pain in his right shoulder as if it was out of its socket for 2 days. He has difficulty staying asleep due to diffuse pain. He mentions intermittent ankle and knee swelling. He takes meloxicam as needed for joint pain twice a month. Denies any urethral discharge, burning with urination or history of STDs. Denies any skin rashes. He is unaware of any family history of an autoimmune rheumatic disease. [facility] Medical History Pain in joint, multiple sites Surgical History Hx of hernia repair Family History Mother Diabetes Hypertension Father No problems noted. 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 [place] [facility] [place] Physical Exam Vital Signs: Last Vital Signs Temp 97.0 F 05/03/23 11:59 Pulse 52 05/03/23 11:59 BP 128/80 05/03/23 11:59 Pulse Ox 97 05/03/23 11:59 Oxygen Delivery Method Room Air 05/03/23 11:59 BMI result Body Mass Index 26.7 Const General: cooperative, healthy appearing and comfortable Nutritional Appearance: average body habitus Orientation/consciousness: patient oriented x3 Limitations: no limitations HEENT Head: Yes normocephalic and Yes atraumatic Resp Effort & Inspection: normal respiratory effort and able to speak in complete sentences Cardio Rate: regular rate Rhythm: regular rhythm Skin General skin exam: no rashes or lesions noted Neuro General: patient oriented x3 Extrem Other: No active synovitis Normal range of motion of both hands, wrists, fingers Negative MCP squeeze test bilaterally Normal range of motion of both elbows without pain Positive empty can test on the right Negative infraspinatus provocative tests bilaterally Negative lift-off test bilaterally Negative straight leg raise test, negative CASH test bilaterally Normal range of motion of both knees without pain No knee swelling or warmth bilaterally No ankle or foot swelling or tenderness bilaterally Negative MTP squeeze test bilaterally Normal nailfold capillaroscopy Results Reviewed Results Reviewed: Labs 11/2022? CBC unremarkable RF/NABIL negative? ESR 2? CRP normal Lyme screen negative Assessment & Plan Assessment & Plan (1) Pain in joint, multiple sites: Code(s): M25.50 - Pain in unspecified joint Plan: This is a 23-year-old male who presents for evaluation of polyarthralgias. He has negative serology, normal inflammatory markers. Bilateral knee x-rays show small effusions. Mentions that his mother might have rheumatoid arthritis. Dramatic improvement with prednisone taper. 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 Discussed risks and benefits of hydroxychloroquine. Start hydroxychloroquine 200 mg Twice daily. Can use prednisone 5-10 mg once daily as needed for joint pain Follow-up in 3 months (2) Mass of joint of right shoulder: Code(s): M25.811 - Other specified joint disorders, right shoulder Plan: Right humerus mass, MRI was ordered for further evaluation Plan I spent 26 minutes reviewing patient's chart, evaluating patient, ordering diagnostic workup, counseling patient and documenting in the chart Orders: Referrals Ophthalmology Referral [id number] - Other half-way (current) drug therapy Medications: New hydroxychloroquine 200 mg PO BID 60 tabs 2RF Changed From prednisone Take 4 tabs by mouth once daily with breakfast for 1 week then 3 tabs daily for 1 week then 2 tabs daily for 1 week then 1 tab daily for 1 week then stop 70 tabs 0RF To prednisone Take 1-2 tabs once daily as needed for joint pain 30 tabs 1RF Coding Level of Care Code Est Pt Level 4 (81983) Diagnoses Pain in joint, multiple sites M25.50 Mass of joint of right shoulder M25.811
[2023-05-03 11:59] VITALS: BP 128/80; PULSE 52; TEMP 36.1; O2SAT 97; BMI 26.7
== END 2023-05-03 12:25 | disposition home or self-care (01) ==
PROVIDERS: PCP Nurse Practitioner Primary Care; Referring Provider Nurse Practitioner Primary Care; Visit Provider Student in an Organized Health Care Education/Training Program
DX: M25.50 Pain in unspecified joint (principal); M25.811 Other specified joint disorders, right shoulder
CPT/HCPCS: 99214

== ENCOUNTER → 2023-05-03 11:50 | Outpatient (BNVA) | payer MEDICAID, SELFPAY | PROVIDERS: PCP Nurse Practitioner Primary Care; Visit Provider Student in an Organized Health Care Education/Training Program | DX: M25.50 Pain in unspecified joint (principal); M25.811 Other specified joint disorders, right shoulder | CPT/HCPCS: 99212 ==

== ENCOUNTER 2023-06-25 11:09 | Outpatient (REF) | payer MEDICAID, SELFPAY ==
--- NOTE | ~2023-06-25 | MR_ITS ---
EXAMINATION: MR SHOULDER WITHOUT AND WITH CONTRAST, RIGHT CLINICAL INFORMATION: Chronic right shoulder pain. Sclerotic focus within the humeral head on prior radiographs. COMPARISON: Right shoulder radiographs dated 04/04/2023. Chest radiograph dated 12/30/2007. TECHNIQUE: MRI of the shoulder was performed before and after the intravenous administration of 10 mL Gadavist on a high-field scanner. FINDINGS: ROTATOR CUFF: Mild tendinosis of the distal infraspinatus tendon adjacent to the insertion where there are small, corticated ossifications as seen on the prior radiographs measuring up to 0.6 cm. No measurable rotator cuff tendon tear. No muscle atrophy or fatty infiltration. BICEPS: Trace fluid and edema peripheral to the proximal long head biceps tendon which could represent minimal tenosynovitis. No measurable tendon tear. CORACOACROMIAL ARCH: The undersurface of the acromion is minimally curved with no subacromial spur. The acromioclavicular joint is normal. LABRUM/CAPSULE: Linear fluid signal within the undersurface of the posterior and posteroinferior labrum, consistent with nondisplaced undersurface tearing. Intact joint capsule. GLENOHUMERAL JOINT/MARROW: Within the greater tuberosity of the humeral head there is a lobulated focus of peripherally low T1/low T2 signal with central high T2 signal and heterogeneous postcontrast enhancement. This measures approximately 2.6 x 2.9 x 2.3 cm (AP by ML by CC). Mild adjacent marrow edema and enhancement with minimal adjacent soft tissue edema. Intact articular cartilage. No acute fracture or dislocation. Trace glenohumeral joint effusion. MR/MR shoulder RT wo/w con IMPRESSION: 1. Lobulated, heterogeneously, centrally enhancing lesion within the greater tuberosity of the humeral head measuring up to 2.9 cm with mild adjacent marrow and soft tissue edema. This demonstrates thick peripheral sclerosis as seen on the prior radiographs. The lesion appears unchanged when compared to the radiographs dated 04/04/2023 and was not seen on a chest radiograph dated 12/30/2007. Differential diagnosis includes atypical appearance of a chondroblastoma. Atypical appearance of an enchondroma is thought less likely due to the location. 2. Mild distal infraspinatus tendinosis with small, corticated ossifications as seen on the prior radiographs. No measurable rotator cuff tendon tear. 3. Nondisplaced undersurface tear of the posterior and posteroinferior labrum. 4. Trace glenohumeral joint effusion. 5. Minimal proximal long head biceps tenosynovitis without a measurable tendon tear. This critical result was discussed with Dr. Leal at 9:55 AM on 06/28/2023 and it was ascertained that the content and urgency of the report was understood at the time of direct communication.
[2023-06-25] MEDS: gadobutroL 10 ML VIAL IVPUSH (12:21)
== END 2023-06-25 11:10 | disposition home or self-care (01) ==
LOC: HO.MRI 11:09
PROVIDERS: PCP Nurse Practitioner Primary Care; Visit Provider Student in an Organized Health Care Education/Training Program
DX: M25.811 Other specified joint disorders, right shoulder (principal)
CPT/HCPCS: 73223; A9585

== ENCOUNTER 2023-07-01 22:20 | Emergency (ER) | payer MEDICAID, SELFPAY ==
[2023-07-01 22:50] VITALS: BP 135/57; PULSE 60; RESP 18; TEMP 36.6; O2SAT 98; BMI 27.2
[2023-07-02 01:53] VITALS: BP 133/62; PULSE 53; RESP 18; O2SAT 98
[2023-07-02 04:42] VITALS: BP 132/76; PULSE 50; RESP 16; TEMP 36.7; O2SAT 98
--- NOTE | 2023-07-02 05:05 | ED_ITS ---
HPI - Eye Problem General Chief complaint: Eye Problems Stated complaint: left eye laceration Time Seen by Provider: 07/02/23 05:00 Source: patient Mode of arrival: ambulatory Limitations: no limitations History of Present Illness HPI Narrative: Patient comes to the emergency room complaining of a laceration in the globe of the left eye. Patient states that earlier today he was playing basketball, and another player accidentally scratched him in the eye. Patient denies any visual changes. Patient complaining of localized pain. Patient denies any loss of consciousness, no other injuries. Patient denies wearing contact lenses Related Data Home Medications Medication Instructions Recorded Confirmed meloxicam 7.5 mg tablet 7.5 mg PO DAILY PRN mild pain 03/28/23 Previous Rx's Medication Instructions Recorded hydroxychloroquine 200 mg tablet 200 mg PO BID #60 tabs 05/03/23 prednisone 5 mg tablet See Rx Instructions PO .COMPLEX 05/03/23 #30 tabs erythromycin 5 mg/gram (0.5 %) eye 0.5 inch ophthalmic (eye) QID #3.5 07/02/23 ointment grams ibuprofen 600 mg tablet 600 mg PO TID PRN fever or pain 07/02/23 #20 tabs Allergies Allergy/AdvReac Type Severity Reaction Status Date / Time No Known Allergies Allergy Verified 07/01/23 22:50 Review of Systems Review of Systems: Constitutional : No Weight loss, No Fever, No Chills, No Night Sweats, No Fatigue, No Malaise ENT/Mouth : No Hearing loss, No Ear Pain, No Nasal Congestion, No Sinus Pain, No Hoarseness, No sore throat, No Rhinorrhea, No Swallowing Difficulty Eyes: Complaining of laceration in the globe of the left eye, localized pain/irritation Cardiovascular : No Chest Pain, No SOB, No Dyspnea on Exertion, No Orthopnea, No Edema, No Palpitations Respiratory : No Cough, No Sputum, No Wheezing, No Smoke Exposure, No Dyspnea Gastrointestinal : No Nausea, No Vomiting, No Diarrhea, No Constipation, No abdominal Pain, No Hematochezia, No Melena Genitourinary : no irregular bleeding, No Dysuria, No Urinary Frequency, No Hematuria, No Urinary Incontinence, No Urgency, No Flank Pain, No Urinary Flow Changes, No Hesitancy Musculoskeletal : No joint pain, No Myalgias, No Joint Swelling Skin : No Skin Lesions, No rash Neuro : No Weakness, No Numbness, No Paresthesias, No Loss of Consciousness, No Dizziness, No Headache Psych : No Anxiety/Panic, No Depression, No SI/HI/AH/VH, No Social Issues, Heme/Lymph: No Bruising, No Bleeding,No Lymphadenopathy Endocrine : No Polyuria, No Polydipsia, No Temperature Intolerance PMFSH Past Medical History Onset Date is defined in the Problem List Problems that require an onset date and time if occurred within 24 hrs of arrival to the ED Aortic Dissection and Rupture; Neurologic impairment; Cardiopulmonary Arrest; Endotracheal Intubation; Insertion or Replacement of Mechanical Circulatory Assist Device Medical History Pain in joint, multiple sites Surgical History Hx of hernia repair Family History Family History Mother Diabetes Hypertension Father No problems noted. 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 Oriented X3. No acute distress. Eyes: Pupils equal, round and reactive to light. There is scant amount of blood in the globe at approximately 11:00 o'clock on the left eye. No obvious lacerations, so reason test is negative for Iris sign, eye pressures 16 mmHg, cornea within normal limits ENT: Pharynx normal. Neck: Normal inspection. Neck supple. No lymph nodes noted. No crepitus CVS: Normal heart rate and rhythm. Pulses normal. Normal S1 and S2 Respiratory: No respiratory distress. Breath sounds normal. No Wheezing. No rales Abdomen: Soft and nontender. No rigidity. No distention. Skin: Skin warm and dry. Normal skin color. Normal skin turgor. Extremities: No lower extremity edema. No Lacerations. No Rash Neuro: Oriented X 3. No motor deficit. No sensory deficit. Moving all extremities. No slurred speech. CN 2 through 12 grossly intact Psych: calm, cooperative, normal affect Course Course Course Narrative: -patient states that for years he has needed glasses but he has never been to an director regulatory affairs to check his eye vision. -patient states that his eye vision is at baseline, does not notice any changes. Medications Administered Discontinued Medications Generic Name Dose Route Start Last Admin Trade Name Freq PRN Reason Stop Dose Admin Fluorescein Sodium 1 strip 07/02/23 05:04 07/02/23 05:14 Fluorescein Sodium Strip EYE-BOTH 07/02/23 05:05 1 strip ONCE ONE Administration Tetracaine HCl 1 drop 07/02/23 05:04 07/02/23 05:14 Tetracaine Hcl/Pf 0.5% Oph Lori 4 Ml Drops EYE-RIGHT 07/02/23 05:05 1 drop ONCE ONE Administration Medical Decision Making Medical Decision Making MDM Narrative: -I discussed the physical exam with the patient, patient has a small abrasion to the globe. Eye pressure normal. As mentioned before, visual acuity would be very difficult since patient at baseline has very bad vision per patient and is not any different at this time. -patient instructed to follow-up with Dr. Nation and then he needs to follow- up with an director regulatory affairs Differential Diagnosis Differential Diagnoses: The differential diagnosis associated with the presentation includes (Globe laceration, globe abrasion, cornea abrasion versus laceration) Discharge Plan Discharge Clinical Impression: Abrasion of sclera of left eye Patient Disposition: Home, Self-Care Instructions: Corneal Abrasion (ED) Additional Instructions: Please follow-up with your primary care physician tomorrow. If you have any worsening or new symptoms, please return to the emergency room or call 911 Prescriptions: New erythromycin 5 mg/gram (0.5 %) ointment 0.5 inch ophthalmic (eye) QID Qty: 3.5 0RF ibuprofen 600 mg tablet 600 mg PO TID PRN (Reason: fever or pain) Qty: 20 0RF No Action meloxicam 7.5 mg tablet 7.5 mg PO DAILY PRN (Reason: mild pain) hydroxychloroquine 200 mg tablet 200 mg PO BID Qty: 60 2RF prednisone 5 mg tablet See Rx Instructions PO .COMPLEX Qty: 30 1RF Rx Instructions: Take 1-2 tabs once daily as needed for joint pain Referrals: Rosendo Nation [Physician] - 07/02/23
[2023-07-02] MEDS: Tetracaine HCl/PF 0.5% Oph Sol 4 ML DROPS 1 DROP EYE-RIGHT (05:14)
[2023-07-02] MEDS: Fluorescein Sodium STRIP 1 STRIP EYE-BOTH (05:14)
[2023-07-02 05:40] VITALS: BP 132/70; PULSE 52; RESP 18; TEMP 36.6; O2SAT 97
== END 2023-07-02 05:44 | disposition home or self-care (01) ==
PROVIDERS: Emergency Provider Emergency Medicine; PCP Nurse Practitioner Primary Care
DX: S05.02XA Injury of conjunctiva and corneal abrasion without foreign body, left eye, initial encounter (principal); W50.4XXA Accidental scratch by another person, initial encounter; Y93.67 Activity, basketball; Y92.310 Basketball court as the place of occurrence of the external cause; Y99.9 Unspecified external cause status
CPT/HCPCS: 99283; 99284

== ENCOUNTER 2023-07-23 10:07 | Outpatient (REF) | payer MEDICAID, SELFPAY | END 2023-07-23 10:08 | disposition home or self-care (01) | LOC: HO.HOSX 10:07 | PROVIDERS: Visit Provider Physician Assistant | DX: Z13.89 Encounter for screening for other disorder (principal) ==

== ENCOUNTER 2023-08-14 11:42 | Outpatient (AMB) | payer MEDICAID, SELFPAY ==
[2023-08-14 11:44] VITALS: BP 118/64; PULSE 41; TEMP 36.2; O2SAT 99; BMI 27.4
--- NOTE | 2023-08-14 11:44 | MHC.OFFVIS ---
Intake Vital Signs 08/14/23 11:44 Height 6 ft 3 in Weight 218 lb 14.704 oz BMI 27.4 BP 118/64 Blood Pressure Location Rt brachial Position Sitting Pulse 41 L Pulse Source Pulse Oximeter Temp 97.2 F Temp Source Skin Pulse Oximetry (%) 99 Oxygen Delivery Method Room Air Intake Visit Reasons: RA Intake Note: Patient last seen 05/03/23 presents today for follow up and test results. Has not seen ophthalmology yet. 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 He states that he took hydroxychloroquine for approximately 1 month, did not notice any improvement. He states that he takes prednisone to 3 times a week, 10-15 mg each time which helped with his joint pain. He continues to have joint pain in shoulders, knees, ankles with activity. Noticed some puffiness of his hands in the morning that lasts 1-2 hours, no morning stiffness of his hands. The majority of his pain is in the right shoulder. Initial history: This is a 23-year-old male who presents for evaluation of multiple joint pain. Per patient his been having symptoms for some time but they have been worse over the last year. States that the majority of his pain is both knees and ankles, usually after activities such as playing basketball or lifting weights at the gym. He plays basketball 2 to 3 times a week. States that he had bilateral ankle sprains over the last year. States that he injured his wrist years ago. He also states that if he lifts something that is moderately heavy he would have pain in his right shoulder as if it was out of its socket for 2 days. He has difficulty staying asleep due to diffuse pain. He mentions intermittent ankle and knee swelling. He takes meloxicam as needed for joint pain twice a month. Denies any urethral discharge, burning with urination or history of STDs. Denies any skin rashes. He is unaware of any family history of an autoimmune rheumatic disease. [facility] Medical History Pain in joint, multiple sites Surgical History Hx of hernia repair Family History Mother Diabetes Hypertension Father No problems noted. 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 Review of Systems [facility] [place] Reports arthralgias Physical Exam Vital Signs: Last Vital Signs Temp 97.2 F 08/14/23 11:44 Pulse 41 L 08/14/23 11:44 BP 118/64 08/14/23 11:44 Pulse Ox 99 08/14/23 11:44 Oxygen Delivery Method Room Air 08/14/23 11:44 BMI result Body Mass Index 27.4 Const General: cooperative, healthy appearing and comfortable Nutritional Appearance: average body habitus Orientation/consciousness: patient oriented x3 Limitations: no limitations HEENT Head: Yes normocephalic and Yes atraumatic Resp Effort & Inspection: normal respiratory effort and able to speak in complete sentences Skin General skin exam: no rashes or lesions noted Neuro General: patient oriented x3 Extrem Other: No active synovitis Normal range of motion of both hands, wrists, fingers Negative MCP squeeze test bilaterally Normal range of motion of both elbows without pain Negative straight leg raise test, negative CASH test bilaterally Normal range of motion of both knees without pain No knee swelling or warmth bilaterally No ankle or foot swelling or tenderness bilaterally Negative MTP squeeze test bilaterally Normal nailfold capillaroscopy Results Reviewed Results Reviewed: Labs 11/2022? CBC unremarkable RF/NABIL negative? ESR 2? CRP normal Lyme screen negative IMPRESSION: 1. Lobulated, heterogeneously, centrally enhancing lesion within the greater tuberosity of the humeral head measuring up to 2.9 cm with mild adjacent marrow and soft tissue edema. This demonstrates thick peripheral sclerosis as seen on the prior radiographs. The lesion appears unchanged when compared to the radiographs dated 04/04/2023 and was not seen on a chest radiograph dated 12/30/2007. Differential diagnosis includes atypical appearance of a chondroblastoma. Atypical appearance of an enchondroma is thought less likely due to the location. 2. Mild distal infraspinatus tendinosis with small, corticated ossifications as seen on the prior radiographs. No measurable rotator cuff tendon tear. 3. Nondisplaced undersurface tear of the posterior and posteroinferior labrum. 4. Trace glenohumeral joint effusion. 5. Minimal proximal long head biceps tenosynovitis without a measurable tendon tear. Assessment & Plan Assessment & Plan (1) Pain in joint, multiple sites: Code(s): M25.50 - Pain in unspecified joint Plan: This is a 23-year-old male who presents for evaluation of polyarthralgias. He has negative serology, normal inflammatory markers. Bilateral knee x-rays show small effusions. Mentions that his mother might have rheumatoid arthritis. Significant improvement with steroid taper. Patient took hydroxychloroquine for approximately 1 month without improvement. His symptoms at this point are likely degenerative and mechanical in nature. I explained to patient that prednisone should not be used long-term for treatment of such cases,. He can take Tylenol or NSAIDs as needed. He requested meloxicam refill. I provided a 30 day supply. I advised patient that if he is to stay on meloxicam long-term, he should get the refill from his PCP as it requires periodic blood work to monitor his kidney function (2) Mass of joint of right shoulder: Code(s): M25.811 - Other specified joint disorders, right shoulder Plan: Right shoulder MRI showed a mass, DDx chondroblastoma versus enchondroma It also shows a labral tear which can be causing his shoulder pain. Patient has a follow-up appointment with Orthopedics next week Plan I spent 26 minutes reviewing patient's chart, evaluating patient, counseling patient and documenting in the chart Medications: New meloxicam 7.5 mg PO DAILY PRN 30 tabs 0RF mild pain Coding Level of Care Code Est Pt Level 4 (14237) Diagnoses Pain in joint, multiple sites M25.50 Mass of joint of right shoulder M25.811
== END 2023-08-14 12:08 | disposition home or self-care (01) ==
PROVIDERS: PCP Nurse Practitioner Primary Care; Visit Provider Student in an Organized Health Care Education/Training Program
DX: M25.50 Pain in unspecified joint (principal); M25.811 Other specified joint disorders, right shoulder
CPT/HCPCS: 99214

== ENCOUNTER → 2023-08-14 11:42 | Outpatient (BNVA) | payer MEDICAID, SELFPAY | PROVIDERS: PCP Nurse Practitioner Primary Care; Visit Provider Student in an Organized Health Care Education/Training Program | DX: M25.50 Pain in unspecified joint (principal); M25.811 Other specified joint disorders, right shoulder | CPT/HCPCS: 99212 ==

== ENCOUNTER 2023-08-20 09:08 | Outpatient (AMB) | payer MEDICAID, SELFPAY ==
--- NOTE | 2023-08-20 09:10 | MHC.OFFVIS ---
Intake Vital Signs 08/20/23 09:12 Height 6 ft 3 in Weight 218 lb BMI 27.2 Handedness Right Intake Visit Reasons: New Pt - right shoulder pain Intake Note: Usama is a 23 year old right hand dominant male who presents today as a new patient for a evaluation of his right shoulder pain, MRI done on 06/25/23. He states that his pain has been ongoing for many years. Currently, is having some pain today, he states that it is a 3/10 on the pain scale. Allergies No Known Allergies Allergy (Verified 08/14/23 11:46) HPI New Pt - right shoulder pain HPI Details 23-year-old right hand dominant male who presents in the office today, as a new patient, for an evaluation of right shoulder pain. The patient is currently followed by Rheumatology who referred him to our office after MRI of the shoulder obtained was significant for a lesion. Per the provider note the patient states that if he lifts something that is moderately heavy he would have pain in his right shoulder and achiness throughout in the evening. Pain with activities such as weight lifting and playing basketball. While in the office today the patient states his pain has been ongoing for many years. He rates his pain as a 3/10 while in the office today. 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 [facility] Medical History Pain in joint, multiple sites Surgical History Hx of hernia repair Family History Mother Diabetes Hypertension Father No problems noted. 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 No ecchymosis, erythema, or edema. Full shoulder ROM in all planes. Negative cross-body reach. 4/5 strength with empty can. Negative drop arm. NVI. Assessment & Plan Assessment & Plan (1) Lesion of right shoulder: Code(s): M75.91 - Shoulder lesion, unspecified, right shoulder (2) Right shoulder pain: Code(s): M25.511 - Pain in right shoulder Qualifiers: Chronicity: unspecified Qualified Code(s): M25.511 - Pain in right shoulder Plan 23-year-old right hand dominant male who presents in the office today, as a new patient, for an evaluation of right shoulder pain. The patient is currently followed by Rheumatology who referred him to our office after MRI of the shoulder obtained was significant for a lesion. Per the provider note the patient states that if he lifts something that is moderately heavy he would have pain in his right shoulder and achiness throughout in the evening. Pain with activities such as weight lifting and playing basketball. 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 A referral to physical therapy has been made while in the office today. I recommend for the patient to work on right shoulder strengthening and periscapular stabilization. As far as the MRI findings, I feel the patient should be evaluated by Dr. Torres. An appointment will be made with him for next week. Follow up will be in [address] Torres, or sooner if needed. MRI of the right shoulder, obtained on 06/25/2023, revealed: 1. Lobulated, heterogeneously, centrally enhancing lesion within the greater tuberosity of the humeral head measuring up to 2.9 cm with mild adjacent marrow and soft tissue edema. This demonstrates thick peripheral sclerosis as seen on the prior radiographs. The lesion appears unchanged when compared to the radiographs dated 04/04/2023 and was not seen on a chest radiograph dated 12/30/2007. Differential diagnosis includes atypical appearance of a chondroblastoma. Atypical appearance of an enchondroma is thought less likely due to the location. 2. Mild distal infraspinatus tendinosis with small, corticated ossifications as seen on the prior radiographs. No measurable rotator cuff tendon tear. 3. Nondisplaced undersurface tear of the posterior and posteroinferior labrum. 4. Trace glenohumeral joint effusion. 5. Minimal proximal long head biceps tenosynovitis without a measurable tendon tear. X-rays of the right shoulder, obtained on 04/04/2023, revealed: IMPRESSION: Indeterminate 3.3 cm predominantly sclerotic focus right humeral head. MRI recommended. Bilateral knee joint effusions without acute bony pathology. Patient Instructions: Scribed by Kathie Butler medical technical writer, for Mady Mortensen PA-C on 08/20/2023 at 9:10 am, EST. Coding Level of Care Code New Pt Level 4 (43691) Diagnoses Lesion of right shoulder M75.91 Right shoulder pain, unspecified chronicity M25.511 Chronicity: unspecified
[2023-08-20 09:12] VITALS: BMI 27.2
== END 2023-08-20 09:20 | disposition home or self-care (01) ==
PROVIDERS: PCP Nurse Practitioner Primary Care; Visit Provider Physician Assistant
DX: M75.91 Shoulder lesion, unspecified, right shoulder (principal); M25.511 Pain in right shoulder
CPT/HCPCS: 99204

== ENCOUNTER → 2023-08-20 09:08 | Outpatient (BNVA) | payer MEDICAID, SELFPAY | PROVIDERS: PCP Nurse Practitioner Primary Care; Visit Provider Physician Assistant | DX: M75.91 Shoulder lesion, unspecified, right shoulder (principal); M25.511 Pain in right shoulder | CPT/HCPCS: 99212 ==

== ENCOUNTER 2023-08-26 09:04 | Outpatient (AMB) | payer MEDICAID, SELFPAY ==
--- NOTE | 2023-08-26 09:05 | MHC.OFFVIS ---
Intake Vital Signs 08/26/23 09:06 Height 6 ft 3 in Weight 218 lb BMI 27.2 Intake Visit Reasons: OV - right shoulder lesion Intake Note: Usama is a 23 year old right hand dominant male who presents today for a follow up of his right shoulder s/p MRI. He was last seen with Mady who requested that patient meet with Dr. Torres Allergies No Known Allergies Allergy (Verified 08/26/23 09:07) HPI OV - right shoulder lesion HPI Details Usama comes in today for MRI review. He has been having right shoulder pain for decades but feels it has been getting worse over the past year. He describes pain after activity. It is sub deltoid and variable. Not every day and not necessarily at night. [facility] Medical History Pain in joint, multiple sites Surgical History Hx of hernia repair Family History Mother Diabetes Hypertension Father No problems noted. 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 Resp Other: No audible wheezing Effort & Inspection: normal respiratory effort Cardio Other: Radial pulse palpable with no rythmic abnormalities Back/Spine/Pelvis Cervical Spine: normal cervical lordosis Skin General skin exam: no rashes or lesions noted Neuro General: no focal motor deficits Extrem Other: Full passive and active ROM + EC (4+/5) on the right + [place] No atrophy No TTP Psych Appearance: grossly normal and well kempt Mental Status: mental status grossly normal Speech and movement: Normal speech and movement present Affect: normal affect Attitude: cooperative Results Reviewed Results Reviewed: I personally reviewed the MR images. Lobulated, heterogeneously, centrally enhancing lesion within the greater tuberosity of the humeral head measuring up to 2.9 cm with mild adjacent marrow and soft tissue edema. This demonstrates thick peripheral sclerosis as seen on the prior radiographs. The lesion appears unchanged when compared to the radiographs dated 04/04/2023 and was not seen on a chest radiograph dated 12/30/2007. Differential diagnosis includes atypical appearance of a chondroblastoma. Atypical appearance of an enchondroma is thought less likely due to the location. Mild distal infraspinatus tendinosis with small, corticated ossifications as seen on the prior radiographs. No measurable rotator cuff tendon tear. Nondisplaced undersurface tear of the posterior and posteroinferior labrum. Trace glenohumeral joint effusion. 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 I would recommend seeing a orthopedic oncologist. I suspect this is not a worrisome finding but I think it probably should be followed by someone more familiar with musculoskeletal Oncology. I will coordinate with our nursing navigator to arrange an appointment for Usama. Coding Level of Care Code Est Pt Level 4 (81666) Diagnoses Lesion of right shoulder M75.91
[2023-08-26 09:06] VITALS: BMI 27.2
== END 2023-08-26 09:20 | disposition home or self-care (01) ==
PROVIDERS: PCP Nurse Practitioner Primary Care; Visit Provider Orthopaedic Surgery
DX: M75.91 Shoulder lesion, unspecified, right shoulder (principal)
CPT/HCPCS: 99213

== ENCOUNTER → 2023-08-26 09:04 | Outpatient (BNVA) | payer MEDICAID, SELFPAY | PROVIDERS: PCP Nurse Practitioner Primary Care; Visit Provider Orthopaedic Surgery | DX: M75.91 Shoulder lesion, unspecified, right shoulder (principal) | CPT/HCPCS: 99212 ==

== ENCOUNTER 2023-12-07 16:19 | Emergency (ER) | payer MEDICAID, SELFPAY ==
[2023-12-07 16:25] VITALS: BP 115/51; PULSE 55; RESP 19; TEMP 36.6; O2SAT 99; BMI 26.9
--- NOTE | 2023-12-07 16:26 | ED_ITS ---
HPI - Wound/Laceration General Chief Complaint: Wound/Laceration Stated Complaint: right eye laceration Time Seen by Provider: 12/07/23 16:37 Source: patient Mode of arrival: ambulatory Limitations: no limitations History of Present Illness ED Provider: norma [facility] narrative: Patient is a 23-year-old male presenting to the ED with laceration to right eyebrow. Hit by another player's head during basketball game. Denies headache, vision changes or loss of consciousness. He is not anticoagulated. Tdap up to date. Onset (ago): hour(s) Location: face Place: outdoors Patient tetanus UTD: Yes Context: accidental Associated symptoms: pain Treatments prior to arrival: bandage Related Data Previous Rx's ?Medication ?Instructions ?Recorded meloxicam 7.5 mg tablet 7.5 mg PO DAILY PRN mild pain #30 08/14/23 tabs Allergies Allergy/AdvReac Type Severity Reaction Status Date / Time No Known Allergies Allergy Verified 12/07/23 16:26 Review of Systems 2 Review of Systems: As per HPI. Yes all other systems are reviewed and are negative Constitutional: Constitutional: Reports as per HPI PMF Past Medical History Medical History Pain in joint, multiple sites Surgical History Hx of hernia repair Family History Family History Mother Diabetes Hypertension Father No problems noted. 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 Blood pressure normal. Heart rate normal. Respiratory rate normal. Temperature normal. Oxygen saturation normal. Const: General: cooperative, healthy appearing and no acute distress O rientation/consciousness: oriented to person, oriented to place, oriented to time and patient oriented x3 Limitations: no limitations HEENT: Head: Yes normocephalic Head images: 1. 1cm linear superficial laceration Ears: external ears normal General nose exam: Normal external nose present Face and sinus: Yes face symmetric Mouth: oropharynx normal and moist mucous membranes Throat: Yes uvula midline Eyes: Pupils: Equal, round and reactive pupils present EOM: EOMs intact bilaterally Neck: Neck: Yes normal visual inspection and Yes supple Resp: Effort & Inspection: normal respiratory effort and able to speak in complete sentences Auscultation: clear to auscultation bilaterally Cardio: Rate: regular rate Rhythm: regular rhythm Heart sounds: S1 normal heart sound present and S2 normal heart sound present : General: Yes no CVA tenderness Back/Spine/Pelvis: Back: no CVA tenderness Skin: General skin exam: elasticity normal and turgor normal Neuro: General: oriented to person, oriented to place, oriented to time, patient oriented x3, moves all extremities, no focal motor deficits and CN's II- XI intact bilaterally Cranial nerves: Yes Equal, round and reactive pupils present Cognition (Neuro): normal cognition Extrem: General: Yes full ROM, Yes no pedal edema and Yes no calf tenderness Psych: Mental Status: mental status grossly normal Affect: normal affect Thought process: Normal thought process present Medical Decision Making Medical Decision Making MDM Narrative: Patient is a 23-year-old male presenting to the ED with laceration to right eyebrow. On exam patient is awake, A+Ox3, VS WNL, afebrile, normal neurological exam without focal deficits, physical exam findings as above. Given reported symptoms and physical exam findings, initial differential includes laceration. Wound repeaired with Exofin skin glue as per procedure note, patient tolerated well. Tdap is up-to-date. Discussed care of skin glue with patient. Advised him to return with any concerning symptoms. Follow-up with PCP. Patient verbalized understanding of and agreement with plan. Differential Diagnosis Differential Diagnoses: The differential diagnosis associated with the presentation includes Laceration External Record Review External record reviewed: Inpatient record, Office record and Outpatient record Procedures Laceration Laceration 1: Site: face Side (If applicable): right (eyebrow) Size (cm): 1 Description: linear Depth: simple, single layer Pre-repair: wound explored, irrigated extensively and deep structures intact Skin layer closed with: other (Exofin skin glue) Discharge Plan Discharge Clinical Impression: Laceration of eyebrow, right Patient Disposition: Home, Self-Care Instructions: Skin Adhesive Care (ED), Facial Laceration (ED) Additional Instructions: You have been evaluated in the emergency department today for a laceration to your eyebrow. Your laceration was repaired in the emergency department with glue. Please keep the area surrounding the laceration clean and dry and keep dressing in place for the next 24 hours. After that please change the dressing and assess the wound daily. Do not pick or peel at the glue, it will fall off on it's own. Use caution when drying off after showering not to rub at the glue. Keep the area out of direct sunlight for the next 6 months to help prevent scarring and apply sunscreen before going outside once the wound is fully healed. If you develop fever, redness, swelling at the site of your laceration, or thick yellow drainage please come back to the ER for a wound check. Prescriptions: No Action meloxicam 7.5 mg tablet 7.5 mg PO DAILY PRN (Reason: mild pain) Qty: 30 0RF Print Language: Kinyarwanda
[2023-12-07 16:55] VITALS: BP 115/51; PULSE 55; RESP 19; TEMP 36.6; O2SAT 99
== END 2023-12-07 16:57 | disposition home or self-care (01) ==
PROVIDERS: Emergency Provider Student in an Organized Health Care Education/Training Program; PCP Nurse Practitioner Primary Care
DX: S01.111A Laceration without foreign body of right eyelid and periocular area, initial encounter (principal); W50.0XXA Accidental hit or strike by another person, initial encounter; Y93.67 Activity, basketball; Y92.310 Basketball court as the place of occurrence of the external cause; Y99.9 Unspecified external cause status
CPT/HCPCS: 12011; 99282

== ENCOUNTER 2023-12-13 09:02 | Outpatient (REF) | payer MEDICAID, SELFPAY | END 2023-12-13 09:03 | disposition home or self-care (01) | LOC: HO.HOSX 09:02 | PROVIDERS: Visit Provider Orthopaedic Surgery | DX: Z13.89 Encounter for screening for other disorder (principal) ==

== ENCOUNTER 2024-01-13 08:45 | Outpatient (REF) | payer MEDICAID, SELFPAY ==
--- NOTE | ~2024-01-13 | XR_ITS ---
EXAMINATION: XR SHOULDER, RIGHT CLINICAL INFORMATION: Reason for Exam M25.519 - Pain in unspecified shoulder COMPARISON: Shoulder radiographs 04/04/2023 and MRI shoulder 07/05/2023 TECHNIQUE: Three views of the shoulder. FINDINGS: No acute fracture or dislocation. Joint spaces are maintained. Again seen is a lobulated sclerotic lesion in the humeral head better characterized on prior MR and not significantly changed from prior radiograph. Again seen are few calcific foci superior to the greater tuberosity which may reflect sequelae of hydroxyapatite deposition disease. XR/XR shoulder RT min 2V IMPRESSION: 1. Again seen is a lobulated sclerotic lesion in the humeral head better characterized on prior MR and not significantly changed from prior radiograph. 2. Again seen are few calcific foci superior to the greater tuberosity which may reflect sequelae of hydroxyapatite deposition disease. 3. No acute fracture or dislocation.
== END 2024-01-13 08:46 | disposition home or self-care (01) ==
LOC: HO.HOSX 08:45
PROVIDERS: Visit Provider Orthopaedic Surgery
DX: M75.91 Shoulder lesion, unspecified, right shoulder (principal)
CPT/HCPCS: 73030; 99212

== ENCOUNTER 2024-01-13 11:25 | Outpatient (AMB) | payer MEDICAID, SELFPAY ==
--- NOTE | 2024-01-13 11:29 | MHC.OFFVIS ---
Vital Signs 01/13/24 11:36 Height 6 ft 3 in Weight 215 lb BMI 26.9 Intake Visit Reasons: ov-lesion of right shoulder Intake Note: Usama is a 23 year old right hand dominant male who presents today for a follow up of his right shoulder. He was last seen in August for a follow up of MRI findings of an atypical chondroblastoma. It was recommended that he see a orthopedic oncologist as he should be followed by someone more familiar with musculoskeletal Oncology. At this time he has not made this follow up appointment. Allergies No Known Allergies Allergy (Verified 12/07/23 16:26) HPI HPI ov-lesion of right shoulder: Details: Usama is a 23 year old right hand dominant male who presents today for a follow up of his right shoulder. He was last seen in August for a follow up of MRI findings of an atypical chondroblastoma. It was recommended that he see a orthopedic oncologist as he should be followed by someone more familiar with musculoskeletal Oncology. At this time he has not made this follow up appointment. He continues to play basketball and denies pain [facility] Medical History Pain in joint, multiple sites Surgical History Hx of hernia repair Family History Mother Diabetes Hypertension Father No problems noted. 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 Resp Other: No audible wheezing Effort & Inspection: normal respiratory effort Cardio Other: Radial pulse palpable with no rythmic abnormalities Back/Spine/Pelvis Cervical Spine: normal cervical lordosis Skin General skin exam: no rashes or lesions noted Neuro General: no focal motor deficits Extrem Other: Full passive and active ROM + EC (4+/5) on the right + [place] No atrophy No TTP Psych Appearance: grossly normal and well kempt Mental Status: mental status grossly normal Speech and movement: Normal speech and movement present Affect: normal affect Attitude: cooperative Assessment & Plan Assessment & Plan (1) Lesion of right shoulder: Code(s): M75.91 - Shoulder lesion, unspecified, right shoulder Category: Medical Plan: 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 We have been trying to get him inot an ortho oncologist but he has not yet gone. I will schedule him in [place]. Orders: Orders XR shoulder RT min 2V 12/13/23 M25.519 - Pain in unspecified shoulder XR shoulder RT min 2V Today M25.519 - Pain in unspecified shoulder Coding Level of Care Code Est Pt Level 4 (12683) Diagnoses Lesion of right shoulder M75.91
[2024-01-13 11:36] VITALS: BMI 26.9
== END 2024-01-13 14:35 | disposition home or self-care (01) ==
PROVIDERS: PCP Nurse Practitioner Primary Care; Visit Provider Orthopaedic Surgery
DX: M75.91 Shoulder lesion, unspecified, right shoulder (principal)
CPT/HCPCS: 99213

== ENCOUNTER 2024-02-11 10:29 | Outpatient (AMB) | payer MEDICAID, SELFPAY ==
--- NOTE | 2024-02-11 10:34 | MHC.OFFVIS ---
Vital Signs 02/11/24 10:40 Height 6 ft 3 in Weight 216 lb 11.43 oz BMI 27.1 BP 115/78 Blood Pressure Location Rt brachial Position Sitting Pulse 39 L Pulse Source Pulse Oximeter Pulse Oximetry (%) 98 Oxygen Delivery Method Room Air Intake Visit Reasons: polyarthralgia Intake Note: Patient presents for Polyarthralgia. Allergies No Known Allergies Allergy (Verified 02/11/24 10:39) Medication List - Last Reconciled 02/11/24 by Sarita Leal MD No Known Home Meds HPI Comments Details: Patient returns for follow-up. He states that he continues to have some right shoulder achiness with activity. He feels that he has some swelling of his fingers and hands, usually worse in the morning. But no significant stiffness. Able to go about his daily activities. He currently works for [employer]. Does not take any Tylenol or NSAIDs for his joint pains. Initial history: This is a 23-year-old male who presents for evaluation of multiple joint pain. Per patient his been having symptoms for some time but they have been worse over the last year. States that the majority of his pain is both knees and ankles, usually after activities such as playing basketball or lifting weights at the gym. He plays basketball 2 to 3 times a week. States that he had bilateral ankle sprains over the last year. States that he injured his wrist years ago. He also states that if he lifts something that is moderately heavy he would have pain in his right shoulder as if it was out of its socket for 2 days. He has difficulty staying asleep due to diffuse pain. He mentions intermittent ankle and knee swelling. He takes meloxicam as needed for joint pain twice a month. Denies any urethral discharge, burning with urination or history of STDs. Denies any skin rashes. He is unaware of any family history of an autoimmune rheumatic disease. [facility] Medical History Pain in joint, multiple sites Surgical History Hx of hernia repair Family History Mother Diabetes Hypertension Father No problems noted. Social History Household Members: Family Alcohol intake: current Alcohol intake frequency: other Patient Tobacco Use Status: Never used Tobacco Substance Use Type: Marijuana Current occupation: Works for [employer] for [employer] Review of [facility] Reports arthralgias Physical Exam Vital Signs: Last Vital Signs Pulse 39 L 02/11/24 10:40 BP 115/78 02/11/24 10:40 Pulse Ox 98 02/11/24 10:40 Oxygen Delivery Method Room Air 02/11/24 10:40 BMI result Body Mass Index 27.1 Const General: cooperative, healthy appearing and comfortable Nutritional Appearance: average body habitus Orientation/consciousness: patient oriented x3 Limitations: no limitations HEENT Head: Yes normocephalic and Yes atraumatic Resp Effort & Inspection: normal respiratory effort and able to speak in complete sentences Skin General skin exam: no rashes or lesions noted Neuro General: patient oriented x3 Extrem Other: No active synovitis Normal range of motion of both hands, wrists, fingers Negative MCP squeeze test bilaterally Normal range of motion of both elbows without pain Negative straight leg raise test, negative CASH test bilaterally Normal range of motion of both knees without pain No knee swelling or warmth bilaterally No ankle or foot swelling or tenderness bilaterally Negative MTP squeeze test bilaterally Normal nailfold capillaroscopy Results Reviewed Results Reviewed: Labs 11/2022? CBC unremarkable RF/NABIL negative? ESR 2? CRP normal Lyme screen negative IMPRESSION: 1. Lobulated, heterogeneously, centrally enhancing lesion within the greater tuberosity of the humeral head measuring up to 2.9 cm with mild adjacent marrow and soft tissue edema. This demonstrates thick peripheral sclerosis as seen on the prior radiographs. The lesion appears unchanged when compared to the radiographs dated 04/04/2023 and was not seen on a chest radiograph dated 12/30/2007. Differential diagnosis includes atypical appearance of a chondroblastoma. Atypical appearance of an enchondroma is thought less likely due to the location. 2. Mild distal infraspinatus tendinosis with small, corticated ossifications as seen on the prior radiographs. No measurable rotator cuff tendon tear. 3. Nondisplaced undersurface tear of the posterior and posteroinferior labrum. 4. Trace glenohumeral joint effusion. 5. Minimal proximal long head biceps tenosynovitis without a measurable tendon tear. Assessment & Plan Assessment & Plan (1) Pain in joint, multiple sites: Code(s): M25.50 - Pain in unspecified joint Category: Medical Plan: This is a 23-year-old male who presents for evaluation of polyarthralgias. He has negative serology, normal inflammatory markers. Bilateral knee x-rays show small effusions. Mentions that his mother might have rheumatoid arthritis. Symptoms improved with steroid taper. Patient took hydroxychloroquine for approximately 1 month without improvement. Upon re-evaluation I think his symptoms are mechanical and degenerative in nature. Not suggestive of an autoimmune rheumatic disease Discussed symptoms and signs suggestive of an autoimmune rheumatic disease. Advised patient to return as needed (2) Mass of joint of right shoulder: Code(s): M25.811 - Other specified joint disorders, right shoulder Category: Medical Plan: Right shoulder MRI showed a mass, DDx chondroblastoma versus enchondroma It also shows a labral tear which can be causing his shoulder pain. He was referred to see an ortho oncologist Plan I spent 26 minutes reviewing patient's chart, evaluating patient, counseling patient and documenting in the chart Coding Level of Care Code Est Pt Level 4 (56844) Diagnoses Pain in joint, multiple sites M25.50 Mass of joint of right shoulder M25.811
[2024-02-11 10:40] VITALS: BP 115/78; PULSE 39; O2SAT 98; BMI 27.1
== END 2024-02-11 11:13 | disposition home or self-care (01) ==
PROVIDERS: PCP Nurse Practitioner Primary Care; Visit Provider Student in an Organized Health Care Education/Training Program
DX: M25.50 Pain in unspecified joint (principal); M25.811 Other specified joint disorders, right shoulder
CPT/HCPCS: 99214

== ENCOUNTER → 2024-02-11 10:29 | Outpatient (BNVA) | payer MEDICAID, SELFPAY | PROVIDERS: PCP Nurse Practitioner Primary Care; Visit Provider Student in an Organized Health Care Education/Training Program | DX: M25.50 Pain in unspecified joint (principal); M25.811 Other specified joint disorders, right shoulder | CPT/HCPCS: 99212 ==